=== PATIENT | female | born 1985 | race Asian ===

== ENCOUNTER 2016-05-13 11:21 | Inpatient (IN) | payer SELFPAY ==
[~2016-05-13] VITALS: Ht 168 cm; Wt 80.3 kg
[2016-05-14] MEDS ORDERED: LACTATED RINGERS 1,000 ML IV SCH (01:34)
[2016-05-14] MEDS ORDERED: PROMETHAZINE 25 MG/ML VIAL IVP PRN (01:35)
[2016-05-14] MEDS ORDERED: OXYTOCIN 10 UNITS/ML VIAL IM SCH (01:35)
[2016-05-14] MEDS ORDERED: OXYTOCIN 20 UNITS/LR PREMIX 1,000 ML IV SCH (01:35)
[2016-05-14] MEDS ORDERED: NALBUPHINE HYDROCHLORIDE 10 MG/ML VIAL IVP PRN (01:35)
[2016-05-14 02:00] LABS: APPEARANCE,URINE SL CLOUDY (CLEAR); BILIRUBIN,URINE NEGATIVE (NEGATIVE); BLOOD, URINE TRACE-I (NEGATIVE); COLOR,URINE YELLOW (YELLOW); LEUKOCYTE ESTERASE ,URINE NEGATIVE (NEGATIVE); NITRITE, URINE NEGATIVE (NEGATIVE); PROTEIN,URINE NEGATIVE (NEGATIVE); UGLUCOSE NEGATIVE (NEGATIVE); UROBILINOGEN,URINE 0.2 EU/dL (0.2 - 1)
[2016-05-14 02:26] LABS: BASOPHILS % (AUTO) 0.4 % (0.0-2.0); EOSINOPHILS # (AUTO) 0.2 K/uL (0-0.4); EOSINOPHILS % (AUTO) 2.2 % (0.0-4.0); HEMATOCRIT 36.6 % (36-48); HEMOGLOBIN 11.9 g/dL (12.0-16.0); LYMPHOCYTES # (AUTO) 1.2 K/uL (2.5-16.5); MEAN CORPUSCULAR HEMOGLOBIN 29 pg (27-31); MEAN CORPUSCULAR HGB CONC 32 g/dL (33-37); MEAN CORPUSCULAR VOLUME 91 fL (80-94); MONOCYTES # (AUTO) 0.5 K/uL (0.8-1.0); MONOCYTES % (AUTO) 5.2 % (1.7-9.3); NEUTROPHILS # (AUTO) 7.6 K/uL (1.8-7.7); NEUTROPHILS % (AUTO) 79.2 % (42.2-75.2); PLATELET COUNT (AUTO) 149 K/uL (140-450); RED BLOOD CELL COUNT(AUTO) 4.03 MIL/uL (4.20-5.40); RED CELL DISTRIBUTION WIDTH 13.6 % (11.6-13.7); WHITE BLOOD COUNT (AUTO) 9.5 K/uL (4.8-10.8)
[2016-05-14 02:27] LABS: BACTERIA,URINE FEW /HPF (None Seen); MUCUS,URINE 3+ /LPF (None Seen); RBC,URINE 0-5 (RARE) /HPF (0-5); URINE AMORPHOUS URATE 3+ /HPF (None Seen); WBC,URINE 0-5 (RARE) /HPF (0-5)
[2016-05-14 02:29] LABS: HIV RAPID SCREEN NON-REACTIVE (NON REACTIV)
[2016-05-14] MEDS ORDERED: PREN-546 PO (03:31)
[2016-05-14 03:37] VITALS: BP 112/79
[2016-05-14] MEDS ORDERED: AMPICILLIN 2,000 MG in NACL 0.9% 100 ML IV SCH (04:35)
[2016-05-14] MEDS ORDERED: BUPIVACAINE 0.125%/NS PREMIX 250 ML ONE (04:46)
[2016-05-14] MEDS ORDERED: AMPICILLIN 2,000 MG VIAL ONE (04:49)
--- NOTE | 2016-05-14 07:45 | NUR ---
PATIENT HAS BEEN SCREENED AND CATEGORIZED LOW NUTRITION RISK. PATIENT WILL BE SEEN WITHIN 7 DAYS OF ADMISSION. 05/20/[address]
[2016-05-14] MEDS ORDERED: AMPICILLIN 1,000 MG in NACL 0.9% 50 ML IV SCH (08:00)
[2016-05-14] MEDS ORDERED: AMPICILLIN 1,000 MG VIAL ONE (08:41)
[2016-05-14 09:18] LABS: RAPID PLASMA REAGIN NON-REACTIVE (Non Reactiv)
[2016-05-14] MEDS ORDERED: OXYTOCIN 20 UNITS/LR PREMIX 1,000 ML IV ONE (11:15)
[2016-05-14] MEDS ORDERED: OXYTOCIN 10 UNITS/ML VIAL ONE (11:15)
[2016-05-14] MEDS ORDERED: LIDOCAINE 1% 50 ML ONE (12:15)
[2016-05-14] MEDS ORDERED: oxyCODONE/APAP 5/325 MG 1 TAB TAB PO PRN (14:10)
[2016-05-14] MEDS ORDERED: BENZOCAINE/MENTHOL 20%-0.5% 60 GM CAN TP PRN (14:10)
[2016-05-14] MEDS ORDERED: METHYLERGONOVINE 0.2 MG/ML AMP IM PRN (14:10)
[2016-05-14] MEDS ORDERED: SODIUM PHOSPHATE 118 ML ENEM RC PRN (14:10)
[2016-05-14] MEDS ORDERED: TEMAZEPAM 15 MG CAP PO PRN (14:10)
[2016-05-14] MEDS ORDERED: WITCH HAZEL 40 PAD PACKAGE TP PRN (14:10)
[2016-05-14] MEDS ORDERED: MEASLES, MUMPS, AND RUBELLA 1 VIAL SQVAC PRN (14:10)
[2016-05-14] MEDS ORDERED: HYDROcodone/APAP 5/325 MG 1 TAB TAB PO PRN (14:10)
[2016-05-14] MEDS ORDERED: INFLUENZA VIRUS VACCINE QUAD 0.5 ML SYR IMVAC ONE (20:13)
[2016-05-14] MEDS ORDERED: DOCUSATE SOD/SENNA 50/8.6 MG 1 TAB PO SCH (21:00)
[2016-05-15] MEDS: IBUPROFEN 800 MG TAB PO PRN ×3 (00:29→20:43)
[2016-05-15 06:36] LABS: HEMATOCRIT 29.2 % (36-48); HEMOGLOBIN 9.9 g/dL (12.0-16.0)
[2016-05-15] MEDS ORDERED: INFLUENZA VIRUS VACCINE QUAD 0.5 ML SYR IMVAC SCH (14:00)
[2016-05-16] MEDS: IBUPROFEN 800 MG TAB PO PRN ×2 (01:13→06:21)
[2016-05-16] MEDS ORDERED: IBUP800T99 PO ×2 (10:58→10:59)
== END 2016-05-16 13:50 | disposition home or self-care (01) | DRG 774 ==
LOC: MLD 05-14 01:10 → MFCC 05-14 15:25
PROVIDERS: ADMIT Obstetrics & Gynecology; ATTEND Obstetrics & Gynecology
PROC: 10D07Z6 Extraction of Products of Conception, Vacuum, Via Natural or Artificial Opening (ICD-10-PCS; principal; 2016-05-14)
PROC: 00HU33Z Insertion of Infusion Device into Spinal Canal, Percutaneous Approach (ICD-10-PCS; 2016-05-14)
PROC: 3E0R3CZ (ICD-10-PCS; 2016-05-14)
PROC: 3E0234Z Introduction of Serum, Toxoid and Vaccine into Muscle, Percutaneous Approach (ICD-10-PCS; 2016-05-14)
DX: O69.1XX0 Labor and delivery complicated by cord around neck, with compression, not applicable or unspecified (principal); O98.42 Viral hepatitis complicating childbirth; B19.10 Unspecified viral hepatitis B without hepatic coma; O70.1 Second degree perineal laceration during delivery; Z3A.40 40 weeks gestation of pregnancy; Z37.0 Single live birth; Z23 Encounter for immunization
CPT/HCPCS: 36415; 51702; 81001; 85018; 85025; 86592; 86886; 86900; 86901; 90658; 90715; J0290; J2001; J2590; J3490; J7120